=== PATIENT | female | born 2000 ===

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

== ENCOUNTER 2018-01-07 14:39 | Emergency (ER) | payer MEDICAID ==
[2018-01-07 14:50] VITALS: RESP 16
--- NOTE | 2018-01-07 16:24 | ED PDOC ---
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 Denies fever, abdominal pain, symptoms. Past Medical History Reviewed: Nursing Documentation, Vital Signs Vital Signs: Last Vital Signs Temp 98.2 F 01/07/18 14:46 Pulse 96 H 01/07/18 14:46 Resp 16 01/07/18 14:46 BP 120/67 01/07/18 14:46 Pulse Ox 98 01/07/18 14:46 - Medical History PMH: No Chronic Diseases, Kidney Stones - Surgical History Surgical History: No Surg Hx - Family History Family History: States: Unknown Family Hx - Social History Current smoker - smoking cessation education provided: No Alcohol: None - Home Medications Home Medications: Ambulatory Orders Medication Instructions Recorded Amoxicillin/Potassium Clav 1 tab PO TID #21 tab 12/27/14 [Augmentin 500 mg-125 mg] Albuterol 0.5% [Albuterol 0.5% 3 ml IH Q4 #20 neb 07/23/15 Inhal Diana (2.5 mg/0.5 ml) UD] Albuterol HFA [Ventolin HFA 90 2 puff IH [id number] #0 puff 07/23/15 mcg/actuation (8 g)] Dextromethorphan HBr [Cough 15 mg PO BID #30 capsule 07/23/15 Control] Mask, Face [Nebulizer Aerosol Mask 1 dev XX PRN PRN #1 dev 07/23/15 Adult] Non-Formulary 1 ea XX DAILY #1 ea 07/23/15 Albuterol HFA [Ventolin HFA 90 1 - 2 puff IH Q4H PRN #1 bottle 01/02/16 mcg/actuation (8 g)] Azithromycin [Zithromax] 250 mg PO DAILY #6 tab 01/02/16 Dicyclomine [Bentyl] 20 mg PO TID PRN #15 tab 05/28/17 Ondansetron ODT [Zofran ODT] 4 mg PO Q8 PRN #10 odt 05/28/17 Promethazine HCl/Codeine 10 ml PO Q8H PRN #150 ml 10/17/17 [Prometh-Codein 6.25-10 mg/5 ml] - Allergies Allergies/Adverse Reactions: Allergies Allergy/AdvReac Type Severity Reaction Status Date / Time No Known Allergies Allergy Verified 01/07/18 14:45 Review of Systems Constitutional: Negative for: Fever, Chills Cardiovascular: Negative for: Chest Pain Respiratory: Negative for: Cough, Shortness of Breath Gastrointestinal: Positive for: Nausea, Vomiting, Diarrhea. Negative for: Abdominal Pain Genitourinary Female: Negative for: Dysuria, Hematuria, Vaginal Discharge, Vaginal Bleeding Musculoskeletal: Negative for: Back Pain Neurological: Positive for: Headache. Negative for: Incoordination, Confusion, Seizures, Dizziness Physical Exam - Reviewed Nursing Documentation Reviewed: Yes Vital Signs Reviewed: Yes - Physical Exam Appears: Positive for: Well, No Acute Distress (On cellphone) Head Exam: Positive for: ATRAUMATIC, NORMAL INSPECTION Skin: Positive for: Normal Color, Warm, Dry Eye Exam: Positive for: Normal appearance, EOMI, PERRL Neck: Positive for: Normal, Painless ROM, Supple Cardiovascular/Chest: Positive for: Regular Rate, Rhythm Respiratory: Positive for: Normal Breath Sounds Gastrointestinal/Abdominal: Positive for: Bowel Sounds, Soft, Tenderness (Epigastric/LUQ). Negative for: Guarding, Rebound Back: Positive for: Normal Inspection. Negative for: L CVA Tenderness, R CVA Tenderness Extremity: Positive for: Normal ROM Neurologic/Psych: Positive for: Alert, sound engineer audio control II-XII, Oriented - ECG O2 Sat by Pulse Oximetry: 98 Medical Decision Making Medical Decision Makin yo female with vomiting, diarrhea, abdominal pain and CASTAÑEDA. - labs - CT abd/pelvis - CT head - IVF - Pepcid - Zofran Disposition - Disposition
[2018-01-07 17:26] LABS: BASO # 0.1 K/uL (0.0-0.2); BASO % 1.2 % (0.0-2.0); EOS % 0.7 % (0.0-4.0); HEMOGLOBIN 13.8 g/dL (12.0-16.0); LYMPH % 48.8 % (20.0-40.0); MEAN CELL VOLUME 89.7 fl (81.0-99.0); MEAN CORPUSCULAR HEMOGLOBIN 30.1 pg (27.0-31.0); MEAN CORPUSCULAR HGB CONC 33.6 g/dL (33.0-37.0); MEAN PLATELET VOLUME 8.2 fl (7.2-11.7); MONO # 0.5 K/uL (0.0-0.8); MONO % 7.5 % (0.0-10.0); NEUT # 2.6 K/uL (1.8-7.0); NEUT % 41.8 % (50.0-75.0); RBC 4.59 Mil/uL (3.80-5.20); RED CELL DISTRIBUTION WIDTH 13.2 % (11.5-14.5); WHITE BLOOD COUNT 6.1 K/uL (4.8-10.8)
[2018-01-07] MEDS: Sodium Chloride 0.9% 1,000 ML IV STA (17:26)
[2018-01-07 17:31] LABS: ALB/GLOB RATIO 1.1 (1.0-2.1); ALBUMIN 4.9 g/dL (3.5-5.0); ALT/SGPT 44 U/L (9-52); AST/SGOT 32 U/L (14-36); BLOOD UREA NITROGEN 8 mg/dl (7-17); CALCIUM 10.2 mg/dL (8.4-10.2); GFR NON-AFRICAN AMERICAN > 60; LIPASE 197 U/L (23-300)
[2018-01-07 17:38] LABS: SQUAMOUS EPITHIAL 12 /hpf (0-5); URINE BACTERIA RARE (<OCC); URINE BILIRUBIN NEGATIVE (NEGATIVE); URINE BLOOD NEGATIVE (NEGATIVE); URINE CLARITY CLOUDY (Clear); URINE COLOR YELLOW (YELLOW); URINE GLUCOSE (UA) NEG (Normal); URINE LEUKOCYTE ESTERASE TRACE Leu/uL (Negative); URINE PROTEIN 30 mg/dL (NEGATIVE); URINE UROBILINOGEN 0.2-1.0 mg/dL (0.2-1.0)
[2018-01-07] MEDS ORDERED: Iohexol 300 100 ML IJ ONE (17:53)
[2018-01-07] MEDS ORDERED: Sodium Chloride 0.9% 50 ML IV ONE (17:53)
--- NOTE | 2018-01-07 18:26 | CT ---
Date of service: 01/07/2018 PROCEDURE: CT HEAD WITHOUT CONTRAST. HISTORY: Headache COMPARISON: None available. TECHNIQUE: Axial computed tomography images were obtained through the head/brain without intravenous contrast. Radiation dose: Total exam DLP = 842.48 mGy-cm. This CT exam was performed using one or more of the following dose reduction techniques: Automated exposure control, adjustment of the mA and/or kV according to patient size, and/or use of iterative reconstruction technique. FINDINGS: HEMORRHAGE: No intracranial hemorrhage. BRAIN: Goddard-white matter differentiation is preserved. There is no mass, mass effect or abnormal extra-axial fluid collection. There is no territorial infarction. The midline sagittal structures are normal. VENTRICLES: The ventricles are normal in size, shape and configuration. CALVARIUM: The skull base and calvarium are normal. PARANASAL SINUSES: Predominantly clear. MASTOID AIR CELLS: Predominantly clear. OTHER FINDINGS: None. IMPRESSION: No acute intracranial abnormality.
--- NOTE | 2018-01-07 19:40 | ED PDOC ---
- Laboratory Results Result Diagrams: 01/07/18 17:00 01/07/18 17:00 - ECG O2 Sat by Pulse Oximetry: 98 (RA) Pulse Ox Interpretation: Normal Medical Decision Making Medical Decision Making: Time: 19:00 Patient was endorsed to me my Dr. Terry pending CT Abd/Pelvis. Patient reports feeling better and is tolerating PO. CT shows no acute findings. Patient continues to feel better. Upon provider reevaluation patient is feeling better, is medically stable, and requires no further treatment in the ED at this time. Patient will be discharged home. Counseling was provided and all questions were answered regarding diagnosis and need for follow up with PMD. There is agreement to discharge plan. Return if symptoms persist or worsen. Scribe Attestation: Documented by, Irene Musa acting as a scribe for Christine Morton MD. Provider Scribe Attestation: All medical record entries made by the Scribe were at my direction and personal ly dictated by me. I have reviewed the chart and agree that the record accurately reflects my personal performance of the history, physical exam, medical decision making, and the department course for this patient. I have also personally directed, reviewed, and agree with the discharge instructions and disposition. Disposition - Clinical Impression Clinical Impression: Gastroenteritis, Headache - Disposition Referrals: Brittany Avery [Family Provider] - Condition: IMPROVED Prescriptions: Famotidine [Pepcid] 20 mg PO BID #20 tab Ibuprofen [Motrin] 600 mg PO Q6H PRN #20 tab PRN Reason: Pain, Moderate (4-7) Ondansetron ODT [Zofran ODT] 4 mg PO Q8H PRN #20 odt PRN Reason: Nausea/Vomiting Instructions: Headache, Adult, Gastroenteritis (ED) Forms: [employer] (Lithuanian) Print Language: [place]IZ[place]
[2018-01-07 20:10] VITALS: BP 105/56; PULSE 79; TEMP 99.3; O2SAT 100
--- NOTE | 2018-01-08 12:00 | CT ---
Date of service: 01/07/2018 PROCEDURE: CT Abdomen and Pelvis with contrast HISTORY: LUQ pain, vomiting/diarrhea COMPARISON: None. TECHNIQUE: Contrast dose: 90 mL Omnipaque 300 Radiation dose: Total exam DLP = 379.57 mGy-cm. This CT exam was performed using one or more of the following dose reduction techniques: Automated exposure control, adjustment of the mA and/or kV according to patient size, and/or use of iterative reconstruction technique. FINDINGS: LOWER THORAX: Unremarkable. LIVER: Unremarkable. No gross lesion or ductal dilatation. GALLBLADDER AND BILE DUCTS: Unremarkable. PANCREAS: Unremarkable. No gross lesion or ductal dilatation. SPLEEN: Unremarkable. ADRENALS: Unremarkable. No mass. KIDNEYS AND URETERS: Unremarkable. No hydronephrosis. No solid mass. VASCULATURE: Unremarkable. No aortic aneurysm. No atherosclerotic calcification. BOWEL: No evidence of bowel obstruction. Minimal diverticulosis at the splenic flexure of the colon. No evidence of diverticulitis. No other abnormal bowel loops are identified. APPENDIX: Normal appendix. PERITONEUM: Unremarkable. No free fluid. No free air. LYMPH NODES: No retroperitoneal or pelvic lymphadenopathy. Shotty subcentimeter nodes are seen in the right lower quadrant medial to the cecum and ascending colon. There are scattered shotty subcentimeter nodes seen in the small bowel mesenteric. This may indicate mesenteric adenitis. Please correlate clinically. BLADDER: Unremarkable. REPRODUCTIVE: Normal uterus. BONES: No acute fracture. OTHER FINDINGS: None. IMPRESSION: Possible mesenteric adenitis. No other significant abnormality identified. The preliminary findings for this examination were reported by [facility] at 7:26 p.m. on 01/07/2018. There is concurrence of this report with the preliminary findings.
== END 2018-01-07 20:10 | disposition home or self-care (01) ==
LOC: H.ER 14:39
DX: K52.9 Noninfective gastroenteritis and colitis, unspecified (principal); R51 Headache
CPT/HCPCS: 70450; 74177; 80053; 81003; 81025; 83690; 85025; 96361; 96374; 96375; 99284; J2405; J7030; Q9967